=== PATIENT | male | born 1955 | race Caucasian/White ===

== ENCOUNTER 2017-03-21 22:00 | Inpatient (IN) | payer BC ==
[~2017-03-21] VITALS: Ht 170.2 cm; Wt 102.2 kg
[~2017-03-21 22:00] MED LIST: ALDACTONE25 MG PO; ASPIR 8181 M1 PO; BEE POLLEN550 MG PO; BENADRYL25 MG PO; CO Q-10300 MG PO; DIOVAN320 MG PO; DOK PLUS TABLE1 EACH PO; DOXAZOSIN MESYLA4 MG PO; GINKGO BILOBA40 MG PO; GLIMEPIRIDE4 MG PO; GLIPIZIDE5 MG PO; GLUCOPHAGE500 MG PO; HYDROCODON-ACE1 EA11 PO; IRON325 M1 PO; LIPITOR40 MG PO; LISINOPRIL40 MG PO; LORCET 5-325 M1 EACH PO; METFORMIN HCL1000 MG PO; METOPROLOL SUC100 MG PO; NORVASC5 MG PO; OXYCODONE HCL5 MG PO; PERCOCET 5/31 TABLET PO; ST. JOHN'S WOR150 MG PO; TENORMIN50 MG PO; TYLENOL REGULA325 MG PO; XANAX0.25 MG PO; XANAX0.5 MG PO; XARELTO10 MG PO; [UNRECOGNIZED DRUG - OTHER] PO
[2017-03-22] MEDS ORDERED: ST. JOHN'S WOR300 M1 PO (06:46)
[2017-03-22 07:21] LABS: POINT-OF-CARE METER ID UU14174212
[2017-03-22 10:05] LABS: POINT-OF-CARE METER ID UU13113675
[2017-03-22 11:39] VITALS: BP 128/72
[2017-03-22 12:30] VITALS: BP 133/79
[2017-03-22 16:11] VITALS: BP 127/80
[2017-03-22 16:41] LABS: POINT-OF-CARE METER ID UU13113712
[2017-03-22 18:30] VITALS: BP 115/70
[2017-03-22 20:54] VITALS: BP 153/79
[2017-03-22 22:10] LABS: POINT-OF-CARE METER ID UU13113712
[2017-03-23] VITALS (7 sets, daily range): BP systolic 92–164; BP diastolic 55–82
[2017-03-23 04:54] LABS: HEMATOCRIT 32.5 % (38.0-50.0); MCV 93.1 FL (86-99)
[2017-03-23 05:16] LABS: CHLORIDE 101 mEq/L (99-109); SODIUM 134 mEq/L (136-147)
[2017-03-23 05:18] LABS: GLUCOSE 177 mg/dL (70-99)
[2017-03-23 05:19] LABS: ANION GAP 8 MEQ/L (2-14)
[2017-03-23 05:22] LABS: GFR ESTIMATE (CALCULATED) > 59 mL/min/ (58.99-99999)
[2017-03-23 05:23] LABS: UREA NITROGEN (BUN) 16 mg/dL (9-23)
[2017-03-23 11:16] LABS: POINT-OF-CARE METER ID UU13113712
[2017-03-23 16:37] LABS: POINT-OF-CARE METER ID UU13113712
[2017-03-23 21:42] LABS: POINT-OF-CARE METER ID UU13113712
[2017-03-24] VITALS: BP 143/63
[2017-03-24 03:28] LABS: POINT-OF-CARE METER ID UU13113712
[2017-03-24 04:00] VITALS: BP 135/69
[2017-03-24 07:09] LABS: HEMATOCRIT 33.9 % (38.0-50.0); MCV 93.4 FL (86-99)
[2017-03-24 07:42] LABS: POINT-OF-CARE METER ID UU13113712
[2017-03-24 08:08] VITALS: BP 140/80
[2017-03-24] MEDS ORDERED: BENADRYL25 MG PO (08:57)
[2017-03-24] MEDS ORDERED: BISACODYL5 MG PO (09:00)
[2017-03-24] MEDS ORDERED: ELIQUIS2.5 MG PO (09:01)
[2017-03-24] MEDS ORDERED: OXYCODONE HCL5 MG PO (09:01)
[2017-03-24] MEDS ORDERED: CELECOXIB200 MG PO (09:01)
[2017-03-24 11:21] LABS: POINT-OF-CARE METER ID UU13113712
[2017-03-24 12:00] VITALS: BP 148/80
== END 2017-03-24 14:50 | disposition home health service (06) | DRG 470 ==
LOC: ENRESERV 22:00 → 2SOUTH 03-22 05:47 → 3WEST 03-22 11:26 → 2SOUTH 03-22 13:14 → 3WEST 03-24 14:50
PROVIDERS: Orthopaedic Surgery
PROC: 0SR904Z Replacement of Right Hip Joint with Ceramic on Polyethylene Synthetic Substitute, Open Approach (ICD-10-PCS; principal; 2017-03-22)
DX: M16.11 Unilateral primary osteoarthritis, right hip (principal); Z96.642 Presence of left artificial hip joint; I10 Essential (primary) hypertension; E11.9 Type 2 diabetes mellitus without complications; I25.2 Old myocardial infarction; G47.30 Sleep apnea, unspecified; Z95.0 Presence of cardiac pacemaker; Z79.84 Long term (current) use of oral hypoglycemic drugs; Z82.49 Family history of ischemic heart disease and other diseases of the circulatory system; Z83.3 Family history of diabetes mellitus
CPT/HCPCS: 73501; 80048; 82948; 85014; 85018; J0131; J0690; J1100; J1815; J2250; J2405; J2795; J7030; J7050